=== PATIENT | female | born 1950 ===

== ENCOUNTER 2021-02-01 08:27 | Outpatient (CLI) | payer OTHER | END 2021-02-01 08:37 | disposition home or self-care (01) | LOC: NUCLEAR 08:27 | PROVIDERS: ATTEND Internal Medicine Cardiovascular Disease | DX: J44.9 Chronic obstructive pulmonary disease, unspecified (principal); I10 Essential (primary) hypertension ==

== ENCOUNTER 2021-07-14 07:25 | Outpatient (CLI) | payer OTHER | END 2021-07-14 07:47 | disposition home or self-care (01) | LOC: TOM 07:25 | PROVIDERS: ATTEND Internal Medicine Cardiovascular Disease | DX: R92.1 Mammographic calcification found on diagnostic imaging of breast (principal); Z12.31 Encounter for screening mammogram for malignant neoplasm of breast; I10 Essential (primary) hypertension; J44.9 Chronic obstructive pulmonary disease, unspecified ==